=== PATIENT | female | born 1990 | race Caucasian/White ===

== ENCOUNTER 2016-12-08 12:44 | Emergency (ER) | payer OTHER ==
[2016-12-08] MEDS ORDERED: ONDANSETRON 4 MG/2 ML VIAL IVP ONE (13:14)
[2016-12-08] MEDS ORDERED: LORazepam 2 MG/ML INJ IVP ONE ×2 (13:45→16:38)
[2016-12-08] MEDS ORDERED: NS 1,000 ML IV ONE (13:45)
[2016-12-08 13:51] LABS: % IMMATURE GRANULYOCYTES 0.4 % (0.0-1.1); ABSOLUTE IMMATURE GRANULOCYTES 0.04 10^3/uL (0.00-0.10); ADD DIFF? NO; ADD MORPH? NO; ADD SCAN? NO; ATYPICAL LYMPHOCYTE FLAG 0 (0-99); FRAGMENT RBC FLAG 0 (0-99); HEMATOCRIT 46.3 % (38.0-47.0); HEMOGLOBIN 16.1 g/dL (12.6-16.3); LEFT SHIFT FLG 0 (0-99); LIPEMIA HEMOLYSIS FLAG 90 (0-99); MEAN CELL HEMOGLOBIN 30.7 pg (27.9-34.1); MEAN CELL HEMOGLOBIN CONCENTR. 34.8 g/dL (32.4-36.7); MEAN CELL VOLUME 88.2 fL (81.5-99.8); MEAN PLATELET VOLUME 9.7 fL (8.7-11.7); PLATELET CLUMPS FLAG 10 (0-99); PLATELET COUNT 184 10^3/uL (150-400); RED BLOOD CELL COUNT 5.25 10^6/uL (4.18-5.33)
[2016-12-08 14:00] LABS: ALBUMIN 4.5 g/dL (3.5-5.0); ALKALINE PHOSPHATASE 129 IU/L (38-126); ANION GAP 19 mEq/L (8-16); BILIRUBIN,TOTAL 10.5 mg/dL (0.1-1.4); BILIRUBIN-CONJUGATED 7.6 mg/dL (0.0-0.5); BILIRUBIN-UNCONJUGATED 2.9 mg/dL (0.0-1.1); CALCIUM 9.1 mg/dL (8.5-10.4); CARBON DIOXIDE 19 mEq/l (22-31); CHLORIDE 95 mEq/L (97-110); ETHANOL SERUM < 10 mg/dL (0-10); GLOMERULAR FILTRATION RATE > 60; GLUCOSE 81 mg/dL (70-100); POTASSIUM 3.6 mEq/L (3.5-5.2); SODIUM 133 mEq/L (134-144)
[2016-12-08 14:01] LABS: INR 3.69 (0.83-1.16); PROTIME(PATIENT) 37.2 SEC (12.0-15.0)
--- NOTE | 2016-12-08 14:32 | EDPHY ---
HPI/HX/ROS/PE/MDM Narrative: CHIEF COMPLAINT: Alcohol withdrawal HISTORY OF PRESENT ILLNESS: This patient is a 26 year old female arriving with her brother complaining of nausea over the last four days secondary to alcohol withdrawal. She states she has been drinking heavily for the last year, and stopped of her own volition. Since then, she has had persistent nausea and vomiting which she has been unable to control. She endorses abdominal pain in addition to her nausea, and subjective fever. She denies history of seizures. She denies past medical problems, including any history of pancreatitis or hepatitis. She endorses occasional cigarette use. No chills, chest pain, shortness of breath, palpitations, diarrhea, urinary complaints, headache, or lightheadedness. Some reports of confusion over the past 2 days. REVIEW OF SYSTEMS: Aside from elements discussed in the HPI, a comprehensive 10-point review of systems was reviewed and is negative. PAST MEDICAL HISTORY: Denies. SOCIAL HISTORY: Brother at bedside. Occasional smoker. Heavy alcohol use. VITAL SIGNS: Reviewed by me GENERAL: Skin appears jaundiced. Well-developed, resting comfortably in no respiratory distress. HEENT: Atraumatic. Eyes: Scleral icterus, no injection. Mouth: moist mucous membranes. No erythema or lesions. Neck: supple with no adenopathy. LUNGS: Clear to auscultation bilaterally, no wheezes, rhonchi or rales. CARDIAC: Regular rate and rhythm, no rubs, murmurs or gallops. ABDOMEN: Diffusely tender. Voluntary guarding throughout. Soft, nondistended, bowel sounds normal. BACK: No CVA tenderness. EXTREMITIES: No trauma. No edema. Range of motion is normal throughout. NEURO: Alert and oriented x3, not encephalopathic, grossly nonfocal. SKIN: Warm and dry, no rash. PSYCHIATRIC: Normal mentation, no agitation. Portions of this note were transcribed by a medical device. I personally performed a history, physical exam, medical decision making, and confirmed accuracy of information the transcribed note. ED Course: This patient is a 26 year old female presenting with a four day history of nausea and vomiting related to alcohol withdrawal. Physical exam reveals jaundiced skin and scleral icterus. Her abdomen is diffusely tender, and she has some voluntary guarding throughout. She is not tremulous. Plan for labs including CBC, CHEM, and liver function. Plan to administer Ativan and Zofran to control symptoms and prevent possible withdrawal seizure. Plan for CT of the abdomen/pelvis to assess her abdominal tenderness and rule out acute processes. Administered 1mg IV Ativan and 4mg IV Zofran. 14:50 Reassessed patient. Discussed lab results including liver function, and lipase. LFTs are AST greater than 7500, ALT greater than 10,000, lipase is 1031. Quite concerned regarding the patient's coagulopathy, as her INR is 3.6. Pending CT. Plan to admit for further care and treatment. 15:12 Spoke to hospitalist service. Dr. Maher accepts admission for acute liver failure, pancreatitis, and alcohol withdrawal. 15:[address] Weeks, radiologist. CT of abdomen and pelvis show fatty infiltrate of liver. Appendix and pancreas are unremarkable. 16:[address] Colon, product representative. Patient's course has been discussed with Dr. Jose Juan Roman. GI recommends that I transfer the patient to [facility] for care with fire management officer and consideration of liver transplant. 16:11 Spoke with the Emergency Department at [facility]. Attempted to speak to someone through [facility] to arrange transfer. 16:[address] Holman, gastroenterology as well as the critical care service. Patient admitted to the hospitalist and will be admitted to the ICU. Patient and her family aware of her serious condition currently. They are aware of the indication for transfer. They are in agreement. Critical care time spent by Dr. Pebbles hansen exclusively with this patient was 35 minutes, exclusive of PA time and exclusive of procedures. The organ system at risk was hepatic and I gave IV fluids, and transferred to a fire management officer to prevent worsening of the patients condition. Critical care time included obtaining history, performing a physical exam, bedside monitoring of interventions, collecting and interpreting tests and discussion with consultants but not including time spent performing procedures. MDM: After obtaining the patient's history and performing an examination, differential diagnosis considered included but was not limited to hepatitis, alcoholic hepatitis, infectious hepatitis, alcohol withdrawal, fulminant hepatic failure, hepatorenal syndrome, acetaminophen overdose, coagulopathy, pancreatitis, infection. - Data Points Imaging: Discussed imaging studies w/ call box wirer Radiologist Laboratory Results: Laboratory Results 12/08/16 13:00 12/08/16 13:00 Medications Given: Discontinued Medications Fentanyl (Sublimaze) 75 mcg IVP EDNOW ONE Stop: 12/08/16 15:12 Last Admin: 12/08/16 15:22 Dose: 75 mcg Sodium Chloride (Ns) 1,000 mls @ 0 mls/hr IV ONCE ONE; Wide Open PRN Reason: Protocol Stop: 12/08/16 13:46 Last Admin: 12/08/16 13:54 Dose: 1,000 mls Lorazepam (Ativan Injection) 1 mg IVP EDNOW ONE Stop: 12/08/16 13:46 Last Admin: 12/08/16 13:54 Dose: 1 mg Lorazepam (Ativan Injection) 1 mg IVP EDNOW ONE Stop: 12/08/16 16:39 Last Admin: 12/08/16 16:44 Dose: 1 mg Ondansetron HCl (Zofran) 4 mg IVP EDNOW ONE Stop: 12/08/16 13:15 Last Admin: 12/08/16 13:15 Dose: 4 mg General Time Seen by Provider: 12/08/16 13:33 Initial Vital Signs: Initial Vital Signs Temperature (C) 36.9 C 12/08/16 12:48 Heart Rate 116 H 12/08/16 12:48 Respiratory Rate 20 12/08/16 12:48 Blood Pressure 108/61 12/08/16 12:48 O2 Sat (%) 97 12/08/16 12:48 O2 Delivery Mode Room Air Allergies/Adverse Reactions: No Known Allergies Allergy (Unverified 12/08/16 12:48) Home Medications: Medication Instructions Recorded Cetirizine [ZyrTEC 10 mg (*)] 20 mg PO DAILY 12/08/16 Herbals/Supplements -Info Only 1 ea PO DAILY 12/08/16 Multivitamins [Multivitamin (*)] 1 each PO DAILY 12/08/16 Departure - Departure Disposition: Acute Care Hospital Not [facility] Clinical Impression: Coagulopathy Acute liver failure Qualifiers: Hepatic coma status: without hepatic coma Qualified Code(s): K72.00 - Acute and subacute hepatic failure without coma Pancreatitis, alcoholic, acute Qualifiers: Acute pancreatitis complication: unspecified Qualified Code(s): K85.20 - Alcohol induced acute pancreatitis without necrosis or infection Alcohol withdrawal Qualifiers: Complication of substance-induced condition: with unspecified complication Qualified Code(s): F10.239 - Alcohol dependence with withdrawal, unspecified Abdominal pain Qualifiers: Abdominal location: generalized Qualified Code(s): R10.84 - Generalized abdominal pain Condition: Serious Referrals: NONE *PRIMARY CARE P,. [Primary Care Provider] - As per Instructions Report Scribed for: Gabbi Rogel Report Scribed by: Hue Chavez Date of Report: 12/08/16 Time of Report: 14:32
[2016-12-08 14:38] VITALS: RESP 16
[2016-12-08] MEDS ORDERED: IOPAMIDOL (ISOVUE-300) 100 ML BTL ONE (14:53)
[2016-12-08 15:09] LABS: ALANINE AMINOTRANSFERASE > 10000 IU/L (9-52); ASPARTATE AMINOTRANSFERASE > 7500 IU/L (14-46)
[2016-12-08] MEDS ORDERED: fentaNYL 100 MCG/2 ML INJ IVP ONE (15:11)
[2016-12-08 15:44] LABS: CK-MB INTERPRETATION NEGATIVE (NEGATIVE)
[2016-12-08 15:55] LABS: SALICYLATE < 1.0 mg/dL (2.0-20.0)
--- NOTE | 2016-12-08 16:30 | PDGENHP ---
History and Physical - Chief Complaint alcohol w/d, n/v - History of Present Illness 26 yo F with PMH of etoh abuse, states that for 3 years at least she has been drinking fairly heavily, but now for the last 7 months or so has been drinking quite heavily, presents from home after intentionally quitting drinking with worsening w/d along with n/v and confusion. She notes that for the last 2 days she has had significant confusion and somnolence as well as hallucinations, very different from w/d she has had in the past. The last time she withdrew was 2 months ago, at that time she did not require hospitalization and recovered on her own. She uses tylenol on occasion she says, but thinks that last time was weeks ago. She used nyguil x 1 on Friday which she thinks may have tylenol in it. She denies any herbal supplements or other exposures. She does not have any STDs that she is collado of and states she has no RF for HIV. She has not had any recent travel. At that time of her ER evaluation she was found to have ast > 7500 and alt >10,000 with INR of 3.7 and bilirubin of 10.5. She has not noted any dark or tarry stools and has not vomited anything that looks like blood or coffee grounds. History Information - Allergies/Home Medication List Allergies/Adverse Reactions: No Known Allergies Allergy (Unverified 12/08/16 12:48) Home Medications: Cetirizine [ZyrTEC 10 mg (*)] 20 mg PO DAILY 12/08/16 [Last Taken 12/04/16] Herbals/Supplements -Info Only 1 ea PO DAILY 12/08/16 [Last Taken Unknown] Multivitamins [Multivitamin (*)] 1 each PO DAILY 12/08/16 [Last Taken 12/08/16] I have personally reviewed and updated: family history, medical history, social history, surgical history - Past Medical History Additional medical history: alcohol abuse and withdrawal - Surgical History Reports: no pertinent surgical hx - Family History Positive for: cancer (paternal GM of liver cancer, unknown if she drank etoh), CAD (mother of [place]) - Social History Smoking Status: Current some day smoker Alcohol Use: Heavy Drug Use: None Additional social history: single, 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 Review of Systems ROS: 10pt was reviewed & negative except for what was stated in HPI & below Physical Exam Temp Pulse Resp BP Pulse Ox 36.9 C 101 H 16 98/62 L 97 12/08/16 12:48 12/08/16 14:38 12/08/16 14:38 12/08/16 14:38 12/08/16 14:38 Constitutional: appears nourished, uncomfortable Eyes: PERRL, icteric sclera Ears, Nose, Mouth, Throat: moist mucous membranes, hearing normal Cardiovascular: regular rate and rhythym, no murmur, rub, or gallop, No edema Respiratory: no respiratory distress, no rales or rhonchi, clear to auscultation Gastrointestinal: normoactive bowel sounds, soft, non-tender abdomen, distension Genitourinary: no bladder fullness Skin: warm, no rashes or abrasions, No normal color (jaundiced) Musculoskeletal: full muscle strength, no muscle tenderness, normal joint ROM Neurologic: AAOx3, CN II-XII Intact, No asterixes Psychiatric: interacting appropriately, not encephalopathic, thought process linear Lab Data & Imaging Review 12/08/16 13:00 12/08/16 13:00 WBC 9.69 10^3/uL (3.80-9.50) H 12/08/16 13:00 RBC 5.25 10^6/uL (4.18-5.33) 12/08/16 13:00 Hgb 16.1 g/dL (12.6-16.3) 12/08/16 13:00 Hct 46.3 % (38.0-47.0) 12/08/16 13:00 MCV 88.2 fL (81.5-99.8) 12/08/16 13:00 MCH 30.7 pg (27.9-34.1) 12/08/16 13:00 MCHC 34.8 g/dL (32.4-36.7) 12/08/16 13:00 RDW 12.0 % (11.5-15.2) 12/08/16 13:00 Plt Count 184 10^3/uL (150-400) 12/08/16 13:00 MPV 9.7 fL (8.7-11.7) 12/08/16 13:00 Neut % (Auto) 95.3 % (39.3-74.2) H 12/08/16 13:00 Lymph % (Auto) 1.5 % (15.0-45.0) L 12/08/16 13:00 [place] % (Auto) 2.7 % (4.5-13.0) L 12/08/16 13:00 Eos % (Auto) 0.0 % (0.6-7.6) L 12/08/16 13:00 Baso % (Auto) 0.1 % (0.3-1.7) L 12/08/16 13:00 Nucleat RBC Rel Count 0.0 % (0.0-0.2) 12/08/16 13:00 Absolute Neuts (auto) 9.23 10^3/uL (1.70-6.50) H 12/08/16 13:00 Absolute Lymphs (auto) 0.15 10^3/uL (1.00-3.00) L 12/08/16 13:00 Absolute Monos (auto) 0.26 10^3/uL (0.30-0.80) L 12/08/16 13:00 Absolute Eos (auto) 0.00 10^3/uL (0.03-0.40) L 12/08/16 13:00 Absolute Basos (auto) 0.01 10^3/uL (0.02-0.10) L 12/08/16 13:00 Absolute Nucleated RBC 0.00 10^3/uL (0-0.01) 12/08/16 13:00 Immature Gran % 0.4 % (0.0-1.1) 12/08/16 13:00 Immature Gran # 0.04 10^3/uL (0.00-0.10) 12/08/16 13:00 PT 37.2 SEC (12.0-15.0) H 12/08/16 13:00 INR 3.69 (0.83-1.16) H 12/08/16 13:00 VBG Lactic Acid 2.6 mmol/L (0.7-2.1) H 12/08/16 16:05 Sodium 133 mEq/L (134-144) L 12/08/16 13:00 Potassium 3.6 mEq/L (3.5-5.2) 12/08/16 13:00 Chloride 95 mEq/L (97-110) L 12/08/16 13:00 Carbon Dioxide 19 mEq/l (22-31) L 12/08/16 13:00 Anion Gap 19 mEq/L (8-16) H 12/08/16 13:00 BUN 13 mg/dL (7-23) 12/08/16 13:00 Creatinine 1.0 mg/dL (0.6-1.0) 12/08/16 13:00 Estimated GFR > 60 12/08/16 13:00 Glucose 81 mg/dL (70-100) 12/08/16 13:00 Calcium 9.1 mg/dL (8.5-10.4) 12/08/16 13:00 Total Bilirubin 10.5 mg/dL (0.1-1.4) H 12/08/16 13:00 Conjugated Bilirubin 7.6 mg/dL (0.0-0.5) H 12/08/16 13:00 Unconjugated Bilirubin 2.9 mg/dL (0.0-1.1) H 12/08/16 13:00 AST > 7500 IU/L (14-46) H 12/08/16 13:00 ALT > 51587 IU/L (9-52) H 12/08/16 13:00 Alkaline Phosphatase 129 IU/L (38-126) H 12/08/16 13:00 Ammonia < 9.0 uMOL/L (9.0-30.0) L 12/08/16 16:05 Creatine Kinase 176 IU/L (0-156) H 12/08/16 13:00 CK-MB (CK-2) Fraction 0.30 ng/mL (0-3.19) 12/08/16 13:00 CK-MB (CK-2) % 0.2 % (0.0-4.0) 12/08/16 13:00 Creatine Kinase Interp NEGATIVE (NEGATIVE) 12/08/16 13:00 Total Protein 8.0 g/dL (6.3-8.2) 12/08/16 13:00 Albumin 4.5 g/dL (3.5-5.0) 12/08/16 13:00 Lipase 1031.0 IU/L (23-300) H 12/08/16 13:00 Beta HCG, Qual NEGATIVE 12/08/16 13:00 Salicylates < 1.0 mg/dL (2.0-20.0) L 12/08/16 14:10 Acetaminophen < 10 mcg/mL (10.0-30.0) L 12/08/16 14:10 Ethyl Alcohol < 10 mg/dL (0-10) 12/08/16 13:00 Visualized and Interpreted imaging results: Yes Interpretation: abdominal ct: fatty infiltration of liver, no appy Assessment & Plan Assessment: Acute liver failure (Acute) Pancreatitis, alcoholic, acute (Acute) Alcohol withdrawal (Acute) 26 yo F with hx of heavy etoh abuse presenting with acute hepatic failure # acute hepatic failure: with coagulopathy, confusion and significant transaminitis concerning for fulminant hepatic failure. At this point have a high suspicion for another etiology contributing to this level of liver injury rather than simple alcoholic hepatitis but by history no other etiology clear. Acute viral hep panel sent, sending tylenol level, nothing to suggest budd chiari on abdominal CT. GI consulted, reviewed with patient and her brother that they may need to be considered for transfer to [facility] or [facility] for consideration of liver transplantation depending on GI recommendations. Will re-evaluate LFTs later today. # etoh abuse/withdrawal: as above, currently w/d sxs seem to be improving, will start ciwa protocol cautiously to avoid any further liver injury # AGMA: with elevated lactate and presumed contribution of alcoholic ketoacidosis, UA pending, IVF, recheck # alcohol induced pancreatitis: lipase > 1000 though only minimal abdominal pain and nothing concerning on imaging of pancreas # dispo: IP status, high risk, may need transfer to transplant facility Patient new to my care. Further hx obtained from patients brother present at bedside. Care plan reviewed with ER doctor including plans for GI consultation.
[2016-12-08 16:34] VITALS: O2SAT 98
[2016-12-08 17:14] VITALS: BP 106/59; PULSE 109; TEMP 98.6
[2016-12-08 18:40] LABS: LACTATE DEHYDROGENASE > 10000 IU/L (313-618)
--- NOTE | 2016-12-08 18:41 | GDS ---
[f rep st] DISCHARGE SUMMARY DISCHARGE DIAGNOSES: 1. Acute hepatic failure. 2. Alcohol abuse and withdrawal. CONSULTATIONS: Gastroenterology. IMAGING: Abdominal CT. HOSPITAL COURSE BY PROBLEM: 1. Acute hepatic failure. The patient initially presented for hospital admission, but after review ing labs and discussing with Gastroenterology, it was felt most beneficial for her to be transferred to [facility] for further evaluation and management, given that she may in fact require liver transplantation. This was reviewed at length with the patient and her brother. Transport was [facility] and the patient was transferred over to [place]. 2. Alcohol abuse and withdrawal. This was stable. DISPOSITION: The patient was discharged to [facility] in critical condition. She will be eval uated further at that facility for possible need for transplant versus ongoing supportive care. /[id number]/MODL
== END 2016-12-08 18:03 | disposition short-term general hospital (02) ==
LOC: UNDOADMIN 15:49
DX: F10.239 Alcohol dependence with withdrawal, unspecified (principal); K85.20 Alcohol induced acute pancreatitis without necrosis or infection; K72.00 Acute and subacute hepatic failure without coma; D68.9 Coagulation defect, unspecified; F17.200 Nicotine dependence, unspecified, uncomplicated
CPT/HCPCS: 96374; G0472; G0480; J2060; J2405; J3010; Q9967